=== PATIENT | female | born 1960 | race American Indian/Alaskan Native ===

== ENCOUNTER 2022-02-07 14:57 | Emergency (ER) | payer OTHER ==
[~2022-02-07] VITALS: Ht 170.2 cm; Wt 107.0 kg
[2022-02-07 17:09] VITALS: BP_SYST 160
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
[2022-02-07] MEDS ORDERED: HYDR-3917 PO (18:43)
[2022-02-07] MEDS ORDERED: IBUP-1969 PO (18:43)
[2022-02-07 18:56] VITALS: BP_SYST 158
--- NOTE | 2022-02-07 18:58 | NUR ---
Patient given written and verbal discharge instructions and verbalizes understanding. ER MD discussed with patient the results and treatment provided. Patient in stable condition. ID arm band removed. IV catheter removed intact and dressing applied, no active bleeding. Rx of MOTRIN/NORCO given. Patient educated on pain management and to follow up with PMD. Pain Scale 3. Opportunity for questions provided and answered. Medication side effect fact sheet provided.
== END 2022-02-07 18:58 | disposition home or self-care (01) ==
LOC: SED 14:57
DX: S13.4XXA Sprain of ligaments of cervical spine, initial encounter (principal); S33.5XXA Sprain of ligaments of lumbar spine, initial encounter; S43.401A Unspecified sprain of right shoulder joint, initial encounter; S00.03XA Contusion of scalp, initial encounter; Z79.899 Other long term (current) drug therapy; V48.4XXA Person boarding or alighting a car injured in noncollision transport accident, initial encounter; Y93.89 Activity, other specified; Y92.89 Other specified places as the place of occurrence of the external cause; Y99.8 Other external cause status
CPT/HCPCS: 70450-TC; 72100-TC; 72125-TC; 73030; 76376; 99284